=== PATIENT | male | born 1990 | race Caucasian/White ===

== ENCOUNTER 2018-10-31 09:08 | Emergency (ER) | payer OTHER ==
[2018-10-31] MEDS ORDERED: FAMOTIDINE 20 MG/50 ML IVPB 20 MG/50 ML MG IVPB ONE ×2 (09:11→09:26)
[2018-10-31] MEDS ORDERED: methylPREDNISolone NA SUCC 125 MG/2 ML VIAL ONE (09:11)
[2018-10-31 09:23] VITALS: PULSE 80; TEMP 98.3; BMI 31.5
[2018-10-31] MEDS ORDERED: methylPREDNISolone NA SUCC 125 MG/2 ML VIAL IVPUSH ONE (09:26)
[2018-10-31] MEDS ORDERED: SODIUM CHLORIDE 0.9% 500 ML INFUS.BAG IV ONE (10:18)
--- NOTE | 2018-10-31 11:33 | PDOC ---
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 He reports only tongue numbness at this time. States he saw a yellow jacket bee fly away after he experienced pain behind his L ear. He denies any rash, shortness of breath, sensation of throat closing, lip or tongue swelling, nausea/vomiting/diarrhea, abdominal pain, dizziness. Patient has EpiPen on him, did not feel he needed to use at this time, but was concerned about tongue numbness and thus presented to the emergency department. He took prednisone 20mg prior to arrival. He reports needing to use his EpiPen last year when he experienced shortness of breath and abdominal discomfort after a bee sting. He denies any history of intubation or ICU stay. He was otherwise in his usual state of good health, denies any recent fevers, chills, focal weakness, CP. Past History - Past Medical History Allergies/Adverse Reactions: Allergies Allergy/AdvReac Type Severity Reaction Status Date / Time cefprozil [From Cefzil] Allergy Verified 10/31/18 09:21 bee sting Allergy Uncoded 10/31/18 09:21 Home Medications: Ambulatory Orders Prednisone [Prednisone 50 MG TABLETS] 50 mg PO DAILY #4 tablet 10/31/18 CVA: No COPD: No - Suicide/Smoking/Psychosocial Hx Smoking History: Never smoked Hx Alcohol Use: Yes (ocasional) Drug/Substance Use Hx: No Review of Systems - Review of Systems Comments:: 10/31/18 11:30 GENERAL/CONSTITUTIONAL: No fever or chills. No weakness. HEAD, EYES, EARS, NOSE AND THROAT: No change in vision. No ear pain or discharge. No sore throat. +tongue numbness GASTROINTESTINAL: No nausea, vomiting, diarrhea or constipation. GENITOURINARY: No dysuria, frequency, or change in urination. CARDIOVASCULAR: No chest pain or shortness of breath. RESPIRATORY: No cough, wheezing, or hemoptysis. MUSCULOSKELETAL: No joint or muscle swelling or pain. No neck or back pain. SKIN: No rash. + bee sting NEUROLOGIC: No headache, vertigo, loss of consciousness, or change in strength/ sensation. ENDOCRINE: No increased thirst. No abnormal weight change. HEMATOLOGIC/LYMPHATIC: No anemia, easy bleeding, or history of blood clots. ALLERGIC/IMMUNOLOGIC: No hives or skin allergy. *Physical Exam - Vital Signs Last Vital Signs Temp Pulse Resp BP Pulse Ox 98.3 F 80 16 122/98 100 10/31/18 09:09 10/31/18 09:09 10/31/18 09:09 10/31/18 09:10/31/18 09:09 - Physical Exam Comments: 10/31/18 11:31 GENERAL: Awake, alert, and fully oriented, in no acute distress HEAD: No signs of trauma EYES: PERRLA, EOMI, sclera anicteric, conjunctiva clear ENT: Oropharynx clear without exudates. No tongue, uvular, tonsillar edema. Moist mucosa. Mallampati 1 NECK: Normal ROM, supple, no lymphadenopathy, JVD, or masses LUNGS: Breath sounds equal, clear to auscultation bilaterally. No wheezes, and no crackles HEART: Regular rate and rhythm, normal S1 and S2, no murmurs, rubs or gallops ABDOMEN: Soft, nontender, normoactive bowel sounds. No guarding, no rebound. No masses EXTREMITIES: Normal range of motion, no edema. No clubbing or cyanosis. No cords, erythema, or tenderness NEUROLOGICAL: Normal speech, cranial nerves intact, 5/5 strength in all 4 extremities, normal sensation to light touch in all 4 extremities, normal cerebellar exam, normal gait, normal tone SKIN: +erythema to posterior aspect of L ear, no stinger noted. Warm, Dry, normal turgor, no rashes or lesions noted. No hives throughout ED Treatment Course - Medications Given in the ED: ED Medications Discontinued Medications Generic Name Dose Route Start Last Admin Trade Name Freq PRN Reason Stop Dose Admin Diphenhydramine HCl 50 mg 10/31/18 09:26 10/31/18 09:20 Benadryl Injection - IVPUSH 10/31/18 09:27 50 mg ONCE ONE Administration Famotidine/Sodium Chloride 20 mg in 50 mls @ 100 mls/hr 10/31/18 09:26 09:22 Pepcid 20 Mg Premixed Ivpb - IVPB 10/31/18 09:55 100 mls/hr ONCE ONE Administration Methylprednisolone Sodium Succinate 125 mg 10/31/18 09:26 10/31/18 09:34 Solu-Medrol - IVPUSH 10/31/18 09:27 125 mg ONCE ONE Administration Sodium Chloride 1,000 ml 10/31/18 10:18 10/31/18 09:30 Normal Saline - IV 10/31/18 10:19 1,000 ml ONCE ONE Administration Medical Decision Making - Medical Decision Making 10/31/18 09:33 28yo M presents to the ED with tongue numbness after a bee sting. Vitals wnl No evidence of anaphylaxis, thus withheld epi Pt treated with solumedrol, benadryl, pepcid IV Will observe monitored for 3 hours 10/31/18 12:00 No events in ED tongue numbness resolved pt very well appearing clinically stable for DC home with 4 more days pred Has epi pens at home and 1 on him now I discussed the physical exam findings, ancillary test results and final diagnoses with the patient. I answered all of the patient's questions. The patient was satisfied with the care received and felt comfortable with the discharge plan and treatment plan. The patient will call their primary care physician within 24 hours to arrange follow-up and will return to the Emergency Department with any new, persistent or worsening symptoms. *DC/Admit/Observation/Transfer Diagnosis at time of Disposition: Bee sting allergy, Allergic reaction, Numbness of tongue - Discharge Dispostion Disposition: HOME Condition at time of disposition: Stable Decision to Admit order: No - Prescriptions Prescriptions: Prednisone [Prednisone 50 MG TABLETS] 50 mg PO DAILY #4 tablet - Referrals - Patient Instructions Printed Discharge Instructions: DI for General Allergic Reactions Additional Instructions: Take the prednisone daily as prescribed for the next 4 days As you have been doing, keep an epi pen on you at all times Follow up with your primary doctor within 2-3 days Return to the emergency department if you have any new, worsening, or concerning symptoms. - Post Discharge Activity - Attestations Physician Attestion: 10/31/18 11:38 I, Dr. Rema Lora MD, attest that this document has been prepared under my direction and personally reviewed by me in its entirety. I further attest, that it accurately reflects all work, treatment, procedures and medical decision -making performed by me.
[2018-10-31 11:53] VITALS: BP 115/79
== END 2018-10-31 12:02 | disposition home or self-care (01) ==
LOC: FER 09:08
PROC: 3E0337Z Introduction of Electrolytic and Water Balance Substance into Peripheral Vein, Percutaneous Approach (ICD-10-PCS; principal; 2018-10-31)
PROC: 3E033GC Introduction of Other Therapeutic Substance into Peripheral Vein, Percutaneous Approach (ICD-10-PCS; 2018-10-31)
DX: W57.XXXA Bitten or stung by nonvenomous insect and other nonvenomous arthropods, initial encounter (principal); Y93.89 Activity, other specified; Y92.89 Other specified places as the place of occurrence of the external cause; R20.0 Anesthesia of skin
CPT/HCPCS: 99282-25